=== PATIENT | male | born 2000 | race Two or more races ===

== ENCOUNTER 2019-03-12 04:53 | Emergency (ER) | payer SELFPAY ==
[~2019-03-12] VITALS: Ht 167.6 cm; Wt 84.0 kg
[2019-03-12] MEDS: SODIUM CHLORIDE 0.9% 1,000 ML IV ONE (05:23)
[2019-03-12 05:48] LABS: BASOPHILS % 0.3 % (0.0-2.0); EOSINOPHILS % 1.4 % (0.0-5.0); HEMATOCRIT. 41.4 % (42.0-52.0); HEMOGLOBIN. 13.8 g/dL (14.0-18.0); MEAN CORPUSCULAR HEMOGLOBIN 28.6 pg (28.0-32.0); MEAN CORPUSCULAR VOLUME 85.9 fL (80.0-94.0); MEAN PLATELET VOLUME 9.7 fl (7.4-10.4); MONOCYTES % 9.4 % (2.0-8.0); NEUTROPHILS % 57.9 % (40.0-76.0); PLATELET 199 x1000/uL (130-400); RED BLOOD CELL COUNT 4.81 mill/uL (4.7-6.1); RED CELL DISTRIBUTION WIDTH 14.4 % (11.6-14.6)
[2019-03-12 05:57] LABS: CHLORIDE 108 mEq/L (98-107)
[2019-03-12] MEDS: LEVETIRACETAM 500MG PREMIX 100 ML IV ONE (06:39)
[2019-03-12 10:04] VITALS: BP 100/58
== END 2019-03-12 10:06 | disposition home or self-care (01) ==
LOC: ER 04:53
DX: R56.9 Unspecified convulsions (principal); R55 Syncope and collapse; R41.0 Disorientation, unspecified
CPT/HCPCS: 36415; 70450; 80053; 83735; 84484; 85025; 93005; 96361; 96365; 99284; J1953; J7030